=== PATIENT | male | born 1990 | race American Indian/Alaskan Native ===

== ENCOUNTER 2019-04-28 00:10 | Emergency (ER) | payer OTHER ==
[2019-04-28 07:48] VITALS: BP 106/47
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
== END 2019-04-28 08:57 | disposition home or self-care (01) ==
LOC: ED 00:10
DX: S39.012A Strain of muscle, fascia and tendon of lower back, initial encounter (principal); M25.511 Pain in right shoulder; V89.2XXA Person injured in unspecified motor-vehicle accident, traffic, initial encounter; Y93.89 Activity, other specified; Y92.410 Unspecified street and highway as the place of occurrence of the external cause; Y99.8 Other external cause status
CPT/HCPCS: 99282

== ENCOUNTER 2021-01-11 15:38 | Emergency (ER) | payer OTHER ==
[2021-01-11 15:50] VITALS: BP 112/74
--- NOTE | 2021-01-11 16:16 | Emergency Department Report ---
Suture/Staple Removal - HPI Chief Complaint: Laceration/Recheck/Suture Stated Complaint: SUTURE REMOVAL Time Seen by Provider: 01/11/21 16:12 When Sutures or Eugenio Placed: 5-7 Days Ago Wound Location: Right side of forehead ED Review of Systems ROS: Stated complaint: SUTURE REMOVAL Other details as noted in HPI Comment: All other systems reviewed and negative ED Past Medical Hx - Social History Smoking Status: Never Smoker Substance Use Type: None - Medications Home Medications: Home Medications Medication Instructions Recorded Confirmed Last Taken Type Methocarbamol [Robaxin] 500 mg PO BID PRN #15 tablet 04/28/19 Unknown Rx Naproxen [Naprosyn] 500 mg PO BID PRN #20 tablet 04/28/19 Unknown Rx Suture Removal Exam - Exam General: Vital signs noted. No distress. Alert and acting appropriately. Wound: No Pathologic Erythema, No Tenderness, No Drainage, No Pus, No Wound Dehiscence Other Systems: All other systems reviewed and are unremarkable. ED Course Vital Signs 01/11/21 15:45 Temperature 98.5 F Pulse Rate 79 Respiratory 18 Rate Blood Pressure 112/74 O2 Sat by Pulse 96 Oximetry ED Recheck MDM - Differential Diagnosis Suture/Staple Removal Critical care attestation.: If time is entered above; I have spent that time in minutes in the direct care of this critically ill patient, excluding procedure time. ED Disposition Clinical Impression: Visit for suture removal Disposition: 01 HOME / SELF CARE / HOMELESS Is pt being admited?: No Does the pt Need Aspirin: No Condition: Stable Instructions: Wound Closure Removal, Care After Additional Instructions: Keep wound clean and dry do not place any ointment or cream to forehead while being in the same as it was actually darkened the scar. Referrals: PRIMARY CARE, [Primary Care Provider] - 3-5 Days Forms: Work/School Release Form(ED) Time of Disposition: 16:13
== END 2021-01-11 16:17 | disposition home or self-care (01) ==
LOC: ED 15:38
DX: S01.81XD Laceration without foreign body of other part of head, subsequent encounter (principal); X58.XXXD Exposure to other specified factors, subsequent encounter